=== PATIENT | male | born 1975 | race American Indian/Alaskan Native ===

== ENCOUNTER 2016-09-29 15:30 | Emergency (ER) | payer SELFPAY ==
[2016-09-29] MEDS ORDERED: BOOSTRIX IM ONE (20:52)
--- NOTE | 2016-09-29 21:12 | Emergency Department Report ---
ED Laceration HPI - HPI Chief Complaint: Wound/Laceration Stated Complaint: LEFT ARM LACERATION Time Seen by Provider: 09/29/16 20:39 Occurred When: Today Location: Upper Extremity Severity: mild Tetanus Status: Not up to Date Laceration Symptoms: Yes Pain (left forearm), No Foreign Body Sensation, No Numbness, No Weakness ED Review of Systems ROS: Stated complaint: LEFT ARM LACERATION Other details as noted in HPI Constitutional: denies: chills, fever Eyes: denies: eye pain, eye discharge, vision change ENT: denies: ear pain, throat pain Respiratory: denies: cough, shortness of breath, wheezing Cardiovascular: denies: chest pain, palpitations Endocrine: no symptoms reported Gastrointestinal: denies: abdominal pain, nausea, diarrhea Genitourinary: denies: urgency, dysuria Musculoskeletal: denies: back pain, joint swelling, arthralgia Skin: other (left forearm laceration). denies: rash, lesions Neurological: denies: headache, weakness, paresthesias Psychiatric: denies: anxiety, depression Hematological/Lymphatic: denies: easy bleeding, easy bruising ED Past Medical Hx - Past Medical History Additional medical history: high cholesterol. HERNIA. OBESITY - Surgical History Past Surgical History?: No - Social History Smoking Status: Current Every Day Smoker Substance Use Type: None - Medications Home Medications: Home Medications Medication Instructions Recorded Confirmed Last Taken Type No Known Home Medications [No 09/29/16 09/29/16 Unknown History Reported Home Medications] Laceration Physical Exam - Exam General: Vital signs noted. No distress. Alert and acting appropriately. Wound Length (cm): 1 (smaller than 1 cm ) Full Body Front + Back: 1 - laceration less than 1 cm bleeding controlled clean no contamination Laceration Exam: Yes Normal Distal CMS, No Foreign Body, No Exposed Tendon, Vessel, or Nerve, No Tendon Injury ED Course Vital Signs 09/29/16 15:37 Temperature 98.6 F Pulse Rate 89 Respiratory 17 Rate Blood Pressure 139/93 O2 Sat by Pulse 95 Oximetry - Laceration /Wound Repair Left Anterior Arm Wound Location: upper extremity Wound Explored: clean Irrigated w/ Saline (ccs): 30 Betadine Prep?: Yes Anesthesia: 1% Lidocaine Volume Anesthetic (ccs): 1 Wound Debrided: minimal Wound Repaired With: sutures Suture Size/Type: 5:0, proline Number of Sutures: 2 Layer Closure?: No Sterile Dressing Applied?: Yes Progress: left forearm laceration repair , site cleaned with betadine solution anesthesia with 1% lidocaine, wound irrigated wtih 30 ns, closed wtih prolyne 5.0 x 2 sutures, all bleeding controlled sterile dressing applied pt given wound care instructions verbalized understanding of same, pt tolerated procedure with minimal distress. 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 ED Disposition Clinical Impression: Laceration of forearm, left Qualifiers: Encounter type: initial encounter Qualified Code(s): S51.812A - Laceration without foreign body of left forearm, initial encounter Disposition: TO HOME OR SELFCARE Is pt being admited?: No Does the pt Need Aspirin: No Condition: Good Instructions: Suture Care (ED) Referrals: PRIMARY CARE, [Primary Care Provider] - 3-5 Days Forms: Work/School Release Form(ED) Time of Disposition: 21:15
[2016-09-30 01:26] VITALS: BP 159/96
== END 2016-09-29 21:25 | disposition home or self-care (01) ==
LOC: ED 15:30
DX: S41.112A Laceration without foreign body of left upper arm, initial encounter (principal); E78.00 Pure hypercholesterolemia, unspecified; F17.210 Nicotine dependence, cigarettes, uncomplicated; X58.XXXA Exposure to other specified factors, initial encounter; Y93.89 Activity, other specified; Y92.89 Other specified places as the place of occurrence of the external cause; Y99.8 Other external cause status
CPT/HCPCS: 90471; 90715; 99282

== ENCOUNTER 2018-05-24 15:29 | Observation (INO) | payer SELFPAY ==
[2018-05-24] MEDS ORDERED: ASPIRIN PO ONE (16:02)
--- NOTE | 2018-05-24 16:04 | Emergency Department Report ---
Chief Complaint: Chest Pain Stated Complaint: CHEST PAINS Time Seen by Provider: 05/24/18 16:01 - HPI History of Present Illness: This is a 42 y.o. male that presents to the ER with chest pain and SOB for 2-3 days. Denies palpations, nausea or vomiting, dizziness, radiating pain, edema, or recent travel. - Exam Vital Signs: Vital Signs 05/24/18 16:00 Temperature 98.7 F Pulse Rate 85 Respiratory 16 Rate Blood Pressure 127/91 O2 Sat by Pulse 98 Oximetry MSE screening note: Focused history and physical exam performed. Due to findings the following was ordered: Labs, ekg, and CXR ED Disposition for MSE Condition: Stable
[2018-05-24 16:22] LABS: Basophils # (Auto) 0.1 K/mm3 (0.0-0.1); Basophils % (Auto) 1.2 % (0.0-1.8); Eosinophils # (Auto) 0.2 K/mm3 (0.0-0.4); Eosinophils % (Auto) 4.5 % (0.0-4.3); Hematocrit 45.3 % (35.5-45.6); Hemoglobin 15.2 gm/dl (11.8-15.2); Lymphocytes # (Auto) 2.6 K/mm3 (1.2-5.4); Lymphocytes % (Auto) 50.6 % (13.4-35.0); Mean Corpuscular HGB Conc 34 % (32-34); Mean Corpuscular Volume 90 fl (84-94); Monocytes # (Auto) 0.3 K/mm3 (0.0-0.8); Monocytes % (Auto) 5.1 % (0.0-7.3); Platelet Count 264 K/mm3 (140-440); Red Blood Count 5.02 M/mm3 (3.65-5.03); Red Cell Distribution Width 14.7 % (13.2-15.2)
[2018-05-24 16:34] LABS: BUN/Creatinine Ratio 9; Blood Urea Nitrogen 9 mg/dL (9-20); Calcium 9.5 mg/dL (8.4-10.2); Hemolysis Index 20
--- NOTE | 2018-05-24 17:03 | XRay Report ---
PROCEDURE: XR CHEST ROUTINE 2V TECHNIQUE: PA and lateral views of the chest HISTORY: Chest Pain COMPARISONS: None FINDINGS: There is no evidence of infiltrate, pneumothorax or pleural fluid collection. The cardiomediastinal silhouette is normal in appearance. The bony structures are unremarkable. IMPRESSION: 1. No evidence of an acute pulmonary process. This document is electronically signed by Graciela Grady MD., May 24 2018 05:01:43 PM ET
[2018-05-24] MEDS ORDERED: NITROSTAT SL PRN (17:32)
--- NOTE | 2018-05-24 18:34 | Emergency Department Report ---
ED Chest Pain HPI - General Chief Complaint: Chest Pain Stated Complaint: CHEST PAINS Time Seen by Provider: 05/24/18 16:01 Source: patient Mode of arrival: Ambulatory Limitations: No Limitations - History of Present Illness -: days(s) (2) Onset: during rest Pain Location: substernal, left chest Pain Radiation: other (left shoulder) Severity: moderate Severity scale (0 -10): 6 Quality: tightness, aching, dull Consistency: constant Improves With: nothing Worsens With: nothing re: dyspnea, other (pt states he gets GERd symptoms after drinking carbonated drinks but states that this discomfort is differant). denies: nausea, vomting, diaphoresis Other Symptoms: denies: cough, fever, syncope, rash, acid taste in mouth, leg swelling, palpitations - Related Data Home Medications Medication Instructions Recorded Confirmed Last Taken No Known Home Medications [No 09/29/16 09/29/16 Unknown Reported Home Medications] Allergies Allergy/AdvReac Type Severity Reaction Status Date / Time Penicillins Allergy Unknown Verified 05/24/18 15:30 shellfish derived Allergy Swelling Verified 05/24/18 15:30 Heart Score - HEART Score History: Moderately suspicious EKG: Non-specific Age: < 45 Risk factors: 1-2 risk factors Troponin: < normal limit HEART Score: 3 ED Review of Systems ROS: Stated complaint: CHEST PAINS Other details as noted in HPI Comment: All other systems reviewed and negative ED Past Medical Hx - Past Medical History Previous Medical History?: Yes Additional medical history: high cholesterol - Surgical History Past Surgical History?: No - Social History Smoking Status: Current Every Day Smoker Substance Use Type: None - Medications Home Medications: Home Medications Medication Instructions Recorded Confirmed Last Taken Type No Known Home Medications [No 09/29/16 09/29/16 Unknown History Reported Home Medications] ED Physical Exam - General Limitations: No Limitations General appearance: alert, in no apparent distress - Head Head exam: Present: atraumatic, normocephalic - Eye Eye exam: Present: normal appearance - ENT ENT exam: Present: mucous membranes moist - Neck Neck exam: Present: normal inspection - Respiratory Respiratory exam: Present: normal lung sounds bilaterally. Absent: respiratory distress, wheezes, rales, rhonchi - Cardiovascular Cardiovascular Exam: Present: regular rate, normal rhythm. Absent: systolic murmur, diastolic murmur, rubs, gallop - GI/Abdominal GI/Abdominal exam: Present: soft, normal bowel sounds. Absent: distended, tenderness, guarding, rebound - Rectal Rectal exam: Present: deferred - Extremities Exam Extremities exam: Present: normal inspection - Back Exam Back exam: Present: normal inspection - Neurological Exam Neurological exam: Present: alert, oriented X3 - Psychiatric Psychiatric exam: Present: normal affect, normal mood - Skin Skin exam: Present: warm, dry, intact, normal color. Absent: rash ED Course Vital Signs 05/24/18 16:00 Temperature 98.7 F Pulse Rate 85 Respiratory 16 Rate Blood Pressure 127/91 O2 Sat by Pulse 98 Oximetry JOSE score - Jose Score Age > 65: (0) No Aspirin use within the Past 7 Days: (0) No 3 or more CAD Risk Factors: (0) No 2 or more Angina events in past 24 hrs: (1) Yes Known CAD with more than 50% Stenosis: (0) No Elevated Cardiac Markers: (0) No ST Deviation Greater than 0.5mm: (0) No JOSE Score: 1 ED Medical Decision Making - Lab Data Result diagrams: 05/24/18 16:07 05/24/18 16:07 Lab Results 05/24/18 05/24/18 Range/Units 16:07 16:07 WBC 5.2 (4.5-11.0) K/mm3 RBC 5.02 (3.65-5.03) M/mm3 Hgb 15.2 (11.8-15.2) gm/dl Hct 45.3 (35.5-45.6) % MCV 90 (84-94) fl MCH 30 (28-32) pg MCHC 34 (32-34) % RDW 14.7 (13.2-15.2) % Plt Count 264 (140-440) K/mm3 Lymph % (Auto) 50.6 H (13.4-35.0) % [place] % (Auto) 5.1 (0.0-7.3) % Eos % (Auto) 4.5 H (0.0-4.3) % Baso % (Auto) 1.2 (0.0-1.8) % Lymph # 2.6 (1.2-5.4) K/mm3 [place] # 0.3 (0.0-0.8) K/mm3 Eos # 0.2 (0.0-0.4) K/mm3 Baso # 0.1 (0.0-0.1) K/mm3 Seg Neutrophils % 38.6 L (40.0-70.0) % Seg Neutrophils # 2.0 (1.8-7.7) K/mm3 Sodium 141 (137-145) mmol/L Potassium 4.4 (3.6-5.0) mmol/L Chloride 103.9 (98-107) mmol/L Carbon Dioxide 28 (22-30) mmol/L Anion Gap 14 mmol/L BUN 9 (9-20) mg/dL Creatinine 1.0 (0.8-1.5) mg/dL Estimated GFR > 60 ml/min BUN/Creatinine Ratio 9 % Glucose 82 (75-100) mg/dL Calcium 9.5 (8.4-10.2) mg/dL Troponin T < 0.010 (0.00-0.029) ng/mL - EKG Data -: EKG Interpreted by Fl EKG shows normal: sinus rhythm, axis, intervals, QRS complexes, ST-T waves Rate: normal - EKG Data Interpretation: normal EKG - Radiology Data [facility] [address] [place] [address] XRay Report Signed Patient: NELLY SEVERINO MR#: [id number] : 1975 Acct:[id number] Age/Sex: 42 / M ADM Date: 05/24/18 Loc: ED Attending Dr: Ordering Physician: DIPAK BAILEY Date of Service: 05/24/18 Procedure(s): XR chest routine 2V Accession Number(s): [id number] cc: DIPAK BAILEY Fluoro Time In Minutes: PROCEDURE: XR CHEST ROUTINE 2V TECHNIQUE: PA and lateral views of the chest HISTORY: Chest Pain COMPARISONS: None FINDINGS: There is no evidence of infiltrate, pneumothorax or pleural fluid collection. The cardiomediastinal silhouette is normal in appearance. The bony structures are unremarkable. IMPRESSION: 1. No evidence of an acute pulmonary process. This document is electronically signed by Graciela Mendez MD., May 24 2018 05:01:43 PM ET Transcribed By: ED Dictated By: GRACIELA MENDEZ MD Electronically Authenticated By: GRACIEAL MENDEZ MD Signed Date/Time: 05/24/18 1703 DD/ 1640 TD/TT: 05/24/18 1640 - Medical Decision Making Patient is a 42-year-old male with a heart score 3. Patient has never had any cardiac evaluation in the past. He is a heavy smoker. Patient states his discomfort is different from any pain he ever had before. Patient to be admitted to the hospitalist service for cardiac workup. Critical Care Time: Yes (30) Critical care attestation.: If time is entered above; I have spent that time in minutes in the direct care of this critically ill patient, excluding procedure time. ED Disposition Clinical Impression: Chest pain Qualifiers: Chest pain type: unspecified Qualified Code(s): R07.9 - Chest pain, unspecified Disposition: 09 OP ADMIT IP TO THIS HOSP Is pt being admited?: Yes Does the pt Need Aspirin: No Condition: Stable Instructions: Chest Pain (ED) Time of Disposition: 18:39
--- NOTE | 2018-05-24 21:59 | History and Physical Report ---
History of Present Illness Date of examination: 05/24/18 Date of admission: 05/24/18 18:40 Medications and Allergies Allergies Allergy/AdvReac Type Severity Reaction Status Date / Time Penicillins Allergy Unknown Verified 05/24/18 15:30 shellfish derived Allergy Swelling Verified 05/24/18 15:30 Home Medications Medication Instructions Recorded Confirmed Last Taken Type No Known Home Medications [No 09/29/16 09/29/16 Unknown History Reported Home Medications] Active Meds: Active Medications Nitroglycerin (Nitrostat) 0.4 mg SL .Q5MIN PRN PRN Reason: Chest Pain Exam - Constitutional Vitals: Temp Pulse Resp BP Pulse Ox 98.7 F 71 18 138/89 98 05/24/18 16:00 05/24/18 20:21 05/24/18 20:23 05/24/18 20:21 05/24/18 20:23 Results - Labs CBC & Chem 7: 05/24/18 16:07 05/24/18 16:07 Labs: Laboratory Last Values WBC 5.2 K/mm3 (4.5-11.0) 05/24/18 16:07 RBC 5.02 M/mm3 (3.65-5.03) 05/24/18 16:07 Hgb 15.2 gm/dl (11.8-15.2) 05/24/18 16:07 Hct 45.3 % (35.5-45.6) 05/24/18 16:07 MCV 90 fl (84-94) 05/24/18 16:07 MCH 30 pg (28-32) 05/24/18 16:07 MCHC 34 % (32-34) 05/24/18 16:07 RDW 14.7 % (13.2-15.2) 05/24/18 16:07 Plt Count 264 K/mm3 (140-440) 05/24/18 16:07 Lymph % (Auto) 50.6 % (13.4-35.0) H 05/24/18 16:07 [place] % (Auto) 5.1 % (0.0-7.3) 05/24/18 16:07 Eos % (Auto) 4.5 % (0.0-4.3) H 05/24/18 16:07 Baso % (Auto) 1.2 % (0.0-1.8) 05/24/18 16:07 Lymph # 2.6 K/mm3 (1.2-5.4) 05/24/18 16:07 [place] # 0.3 K/mm3 (0.0-0.8) 05/24/18 16:07 Eos # 0.2 K/mm3 (0.0-0.4) 05/24/18 16:07 Baso # 0.1 K/mm3 (0.0-0.1) 05/24/18 16:07 Seg Neutrophils % 38.6 % (40.0-70.0) L 05/24/18 16:07 Seg Neutrophils # 2.0 K/mm3 (1.8-7.7) 05/24/18 16:07 Sodium 141 mmol/L (137-145) 05/24/18 16:07 Potassium 4.4 mmol/L (3.6-5.0) 05/24/18 16:07 Chloride 103.9 mmol/L (98-107) 05/24/18 16:07 Carbon Dioxide 28 mmol/L (22-30) 05/24/18 16:07 Anion Gap 14 mmol/L 05/24/18 16:07 BUN 9 mg/dL (9-20) 05/24/18 16:07 Creatinine 1.0 mg/dL (0.8-1.5) 05/24/18 16:07 Estimated GFR > 60 ml/min 05/24/18 16:07 BUN/Creatinine Ratio 9 % 05/24/18 16:07 Glucose 82 mg/dL (75-100) 05/24/18 16:07 Calcium 9.5 mg/dL (8.4-10.2) 05/24/18 16:07 Troponin T < 0.010 ng/mL (0.00-0.029) 05/24/18 21:12
[2018-05-24] MEDS ORDERED: DILAUDID IV PRN (22:01)
[2018-05-24] MEDS ORDERED: PERCOCET 5/325 PO PRN (22:01)
[2018-05-24] MEDS ORDERED: SODIUM CHLORIDE FLUSH SYRINGE 10 ML IV PRN (22:01)
[2018-05-24] MEDS ORDERED: ZOFRAN IV PRN (22:01)
[2018-05-24] MEDS ORDERED: TYLENOL PO PRN (22:01)
--- NOTE | 2018-05-25 06:53 | Event Note ---
Date: 05/24/18 See H/p in reports CHest pain r/o MT Borderline HTN Nicotine dependence
[2018-05-25 06:58] LABS: Alanine Aminotransferase 8 units/L (7-56); Albumin 3.7 g/dL (3.9-5); BUN/Creatinine Ratio 11; Blood Urea Nitrogen 11 mg/dL (9-20); Calcium 8.9 mg/dL (8.4-10.2); Hemolysis Index 9
--- NOTE | 2018-05-25 07:20 | History and Physical Report ---
CHIEF COMPLAINT: Left-sided chest pain off and on for 1 week. HISTORY OF PRESENT ILLNESS: A 42-year-old male with no significant past medical history, comes in for left-sided chest pain with radiation to left arm. Chest pain is dull to sharp in character, about 6 on a scale of 1-10. No diaphoresis, no shortness of breath, no palpitations. Exacerbated by exertion. Relieved with rest. No recent travel. PAST MEDICAL HISTORY: None except for high cholesterol. PAST SURGICAL HISTORY: None. SOCIAL HISTORY: Smokes about a pack a day. FAMILY HISTORY: Hypertension in mother. REVIEW OF SYSTEMS: Significant for left-sided chest pain with radiation to left arm. Otherwise, review of systems negative. PHYSICAL EXAMINATION: GENERAL: Young male, cooperative during examination. VITAL SIGNS: Blood pressure is 138/89, 130/85, 118/64. Pulse is 80 and temperature 98.2. Respiratory rate is 20. HEENT: Unremarkable. Pupils equal and reactive. NECK: Supple, no lymphadenopathy, no thyromegaly. LUNGS: Clear to auscultation and percussion. Good air entry. CARDIOVASCULAR SYSTEM: S1, S2 heard. No gallop, no murmur, no rub. Apical impulse in left fifth intercostal space in midclavicular line. ABDOMEN: Soft and benign. No hepatosplenomegaly, no guarding, no rigidity. Hernial orifices are normal. EXTREMITIES: Good pedal pulses. No pedal edema. CENTRAL NERVOUS SYSTEM: Alert and oriented x 4, nonfocal exam. SKIN: Normal. LABORATORY DATA: White count is 5200, H and H is 15.2 and 45.3, platelet count is 264,000. Electrolytes are normal. DIAGNOSTIC DATA: EKG shows normal sinus rhythm, sinus tachycardia, heart rate of 101. No acute ST-T wave changes. Chest x-ray was normal. No acute findings. ASSESSMENT AND PLAN: 1. Chest pain, rule out myocardial infarction. The patient to get serial troponins and Lexiscan in the morning. Differential diagnosis of costochondritis and gastroesophageal reflux disease to be considered. 2. Hypertension, borderline. Will trend the blood pressure readings and start antihypertensives if necessary. At this point, I do not think he needs any antihypertensives. 3. Nicotine dependence. The patient counseled about nicotine dependence and the effects of smoking. Nicoderm patch initiated. 4. Deep venous thrombosis prophylaxis, Lovenox 40 mg subcutaneous daily. JOB# [id number] VSM/NTS MTDD
[2018-05-25 07:32] LABS: Hematocrit 41.3 % (35.5-45.6); Hemoglobin 13.8 gm/dl (11.8-15.2); Mean Corpuscular HGB Conc 33 % (32-34); Mean Corpuscular Volume 91 fl (84-94); Platelet Count 225 K/mm3 (140-440); Red Blood Count 4.54 M/mm3 (3.65-5.03); Red Cell Distribution Width 14.4 % (13.2-15.2)
[2018-05-25] MEDS ORDERED: LEXISCAN IV ONE ×2 (07:57→08:05)
[2018-05-25 08:55] LABS: Basophils % (Manual) 0 % (0.0-1.8); Platelet Estimate Consistent w Auto; RBC Morphology Normal; Total Cells Counted 100
[2018-05-25] MEDS ORDERED: SODIUM CHLORIDE FLUSH SYRINGE 10 ML IV SCH (10:00)
[2018-05-25] MEDS ORDERED: HABITROL TD SCH ×2 (10:00→12:00)
--- NOTE | 2018-05-25 14:38 | Discharge Summary ---
Providers - Providers Date of Admission: 05/24/18 18:40 Date of discharge: 05/25/18 Attending physician: YING WALL None [facility] Condition: Stable Hospital course: patient was admitted for Chest pain r/o LA protocol.Patient had Lexiscan which was negative .EF was 41 percent on Lexiscan.Also borderline elevation of BP --stated on Losartan 50 mg po qd and ASA 81 mg po qd.Patient was counselled about stopping smoking. Disposition: DC-01 TO HOME OR SELFCARE Core Measure Documentation - Palliative Care Palliative Care/ Comfort Measures: Not Applicable - Core Measures Any of the following diagnoses?: none Exam - Constitutional Vitals: Temp Pulse Resp BP Pulse Ox 97.8 F 58 L 18 151/94 98 05/25/18 05:48 05/25/18 05:48 05/25/18 05:48 05/25/18 10:28 05/25/18 05:48 General appearance: Present: no acute distress, well-nourished - EENT Eyes: Present: PERRL ENT: hearing intact, clear oral mucosa - Neck Neck: Present: supple, normal ROM - Respiratory Respiratory effort: normal Respiratory: bilateral: CTA - Cardiovascular Heart rate: 70 Rhythm: regular Heart Sounds: Present: S1 & S2. Absent: rub, click - Extremities Extremities: no ischemia, pulses intact, pulses symmetrical, No edema Peripheral Pulses: within normal limits - Abdominal General gastrointestinal: Present: soft, non-tender, non-distended, normal bowel sounds Male genitourinary: Present: normal - Rectal Rectal Exam: deferred - Integumentary Integumentary: Present: clear, warm, dry - Musculoskeletal Musculoskeletal: gait normal, strength equal bilaterally - Psychiatric Psychiatric: appropriate mood/affect, intact judgment & insight - Neurologic Neurologic: CNII-XII intact, moves all extremities - Allied Health Allied health notes reviewed: nursing, case management Plan Activity: no restrictions Diet: low fat, low cholesterol, low salt Follow up with: JAY TIWARI MD [Staff Physician] - 7 Days [place] OLIVER DORADO MD [Primary Care Provider] - 07/08/25 NIVIA MANRIQUEZ MD [Staff Physician] - 7 Days
[2018-05-25 17:12] VITALS: BP 144/95
== END 2018-05-25 17:57 | disposition home or self-care (01) ==
LOC: ED 15:29 → 3A 18:40
PROVIDERS: ADMIT Internal Medicine; ATTEND Internal Medicine
DX: R07.89 Other chest pain (principal); I10 Essential (primary) hypertension; E78.00 Pure hypercholesterolemia, unspecified; F17.210 Nicotine dependence, cigarettes, uncomplicated
CPT/HCPCS: 36415; 71046; 78452; 80048; 80053; 83036; 84484; 85007; 85025; 93005; 93010; 93017; 99291; 99406; A9502; G0378; J2785

== ENCOUNTER 2018-09-05 13:05 | Emergency (ER) | payer SELFPAY ==
[2018-09-05 13:22] VITALS: BP 140/95
[2018-09-05 13:35] LABS: Basophils # (Auto) 0.1 K/mm3 (0.0-0.1); Basophils % (Auto) 1.1 % (0.0-1.8); Eosinophils # (Auto) 0.3 K/mm3 (0.0-0.4); Eosinophils % (Auto) 4.8 % (0.0-4.3); Hematocrit 44.6 % (35.5-45.6); Hemoglobin 15.4 gm/dl (11.8-15.2); Lymphocytes # (Auto) 2.6 K/mm3 (1.2-5.4); Lymphocytes % (Auto) 46.2 % (13.4-35.0); Mean Corpuscular HGB Conc 34 % (32-34); Mean Corpuscular Volume 92 fl (84-94); Monocytes # (Auto) 0.3 K/mm3 (0.0-0.8); Monocytes % (Auto) 5.9 % (0.0-7.3); Platelet Count 290 K/mm3 (140-440); Red Blood Count 4.85 M/mm3 (3.65-5.03); Red Cell Distribution Width 14.9 % (13.2-15.2)
--- NOTE | 2018-09-05 13:37 | Event Note ---
ED Screening Note Date of service: 09/05/18 Time: 13:21 ED Screening Note: 42 y/o male comes in for chest pain since last night. History of chest pain last admitted in May for chest pain but never followed up. This initial assessment/diagnostic orders/clinical plan/treatment(s) is/are subject to change based on patients health status, clinical progression and re- assessment by fellow clinical providers in the ED. Further treatment and workup at subsequent clinical providers discretion. Patient/guardian urged not to elope from the ED as their condition may be serious if not clinically assessed and managed. Initial orders include:
[2018-09-05 13:45] LABS: INR 0.93 (0.87-1.13); Partial Thromboplastin Time 27.9 Sec. (24.2-36.6)
[2018-09-05 14:05] LABS: Alanine Aminotransferase 11 units/L (7-56); Albumin 3.9 g/dL (3.9-5); BUN/Creatinine Ratio 7; Blood Urea Nitrogen 6 mg/dL (9-20); Hemolysis Index 9
--- NOTE | 2018-09-05 14:08 | Emergency Department Report ---
ED Chest Pain HPI - General Chief Complaint: Chest Pain Stated Complaint: CHEST PAIN Time Seen by Provider: 09/05/18 13:43 Source: patient Mode of arrival: Ambulatory Limitations: No Limitations - History of Present Illness Severity scale (0 -10): 6 - Related Data Previous Rx's Medication Instructions Recorded Last Taken Type Aspirin EC 81 mg PO QDAY 100 Days #100 05/25/18 Unknown Rx tablet. Losartan [Cozaar] 50 mg PO QDAY #30 tablet 05/25/18 Unknown Rx Allergies Allergy/AdvReac Type Severity Reaction Status Date / Time Penicillins Allergy Unknown Verified 05/24/18 15:30 shellfish derived Allergy Swelling Verified 05/24/18 15:30 ED Review of Systems ROS: Stated complaint: CHEST PAIN Other details as noted in HPI ED Past Medical Hx - Past Medical History Hx Congestive Heart Failure: No Hx Diabetes: No Hx Asthma: No Hx COPD: No Additional medical history: high cholesterol - Surgical History Past Surgical History?: No - Social History Smoking Status: Current Every Day Smoker Substance Use Type: None - Medications Home Medications: Home Medications Medication Instructions Recorded Confirmed Last Taken Type Aspirin EC 81 mg PO QDAY 100 Days #100 05/25/18 Unknown Rx tablet. Losartan [Cozaar] 50 mg PO QDAY #30 tablet 05/25/18 Unknown Rx ED Physical Exam - General Limitations: No Limitations ED Course Vital Signs 09/05/18 13:21 Temperature 98.0 F Pulse Rate 93 H Respiratory 16 Rate Blood Pressure 140/95 O2 Sat by Pulse 98 Oximetry CHRISTELLE score - Christelle Score Age > 65: (0) No Aspirin use within the Past 7 Days: (0) No 3 or more CAD Risk Factors: (0) No 2 or more Angina events in past 24 hrs: (1) Yes Known CAD with more than 50% Stenosis: (0) No Elevated Cardiac Markers: (0) No ST Deviation Greater than 0.5mm: (0) No CHRISTELLE Score: 1 ED Medical Decision Making - Lab Data Result diagrams: 09/05/18 13:26 09/05/18 13:26 Critical care attestation.: If time is entered above; I have spent that time in minutes in the direct care of this critically ill patient, excluding procedure time. ED Disposition Clinical Impression: Chest pain Disposition: DC-01 TO HOME OR SELFCARE Condition: Stable Instructions: Chest Pain (ED) Referrals: JAY TIWARI MD [Staff Physician] - 3-5 Days
--- NOTE | 2018-09-05 14:08 | XRay Report ---
CHEST 2 VIEWS 1354 INDICATION / CLINICAL INFORMATION: chest pain. COMPARISON: None available. FINDINGS: SUPPORT DEVICES: None. HEART / MEDIASTINUM: No significant abnormality. LUNGS / PLEURA: No significant pulmonary or pleural abnormality. No pneumothorax. ADDITIONAL FINDINGS: No significant additional findings. IMPRESSION: No significant acute abnormality Signer Name: Lloyd Olivera MD Signed: 09/05/2018 2:03 PM Workstation Name: [id number]
== END 2018-09-05 14:13 | disposition home or self-care (01) ==
LOC: ED 13:05
DX: R07.89 Other chest pain (principal); E78.00 Pure hypercholesterolemia, unspecified; F17.200 Nicotine dependence, unspecified, uncomplicated; Z79.899 Other long term (current) drug therapy; Z88.0 Allergy status to penicillin; Z91.013 Allergy to seafood
CPT/HCPCS: 36415; 71046; 80053; 84484; 85025; 85610; 85730; 93005; 93010

== ENCOUNTER 2018-10-25 00:29 | Emergency (ER) | payer SELFPAY ==
[2018-10-25] MEDS ORDERED: ASPIRIN PO ONE (00:44)
[2018-10-25 01:13] LABS: Basophils # (Auto) 0.1 K/mm3 (0.0-0.1); Basophils % (Auto) 0.9 % (0.0-1.8); Eosinophils # (Auto) 0.3 K/mm3 (0.0-0.4); Eosinophils % (Auto) 4.9 % (0.0-4.3); Hematocrit 44.2 % (35.5-45.6); Hemoglobin 15.5 gm/dl (11.8-15.2); Lymphocytes # (Auto) 2.2 K/mm3 (1.2-5.4); Mean Corpuscular HGB Conc 35 % (32-34); Mean Corpuscular Volume 90 fl (84-94); Monocytes # (Auto) 0.3 K/mm3 (0.0-0.8); Monocytes % (Auto) 5.8 % (0.0-7.3); Platelet Count 288 K/mm3 (140-440); Red Blood Count 4.89 M/mm3 (3.65-5.03); Red Cell Distribution Width 14.4 % (13.2-15.2)
[2018-10-25 01:35] LABS: BUN/Creatinine Ratio 14; Blood Urea Nitrogen 14 mg/dL (9-20); Calcium 9.5 mg/dL (8.4-10.2); Hemolysis Index 22
[2018-10-25] MEDS ORDERED: ALUM-MAG HYDROX-SIMETH 200-200-20MG/5ML PO ONE (05:14)
--- NOTE | 2018-10-25 05:14 | XRay Report ---
CHEST 1 VIEW 0101 INDICATION / CLINICAL INFORMATION: Chest Pain. COMPARISON: 05/24/2018 FINDINGS: SUPPORT DEVICES: None HEART / MEDIASTINUM: No significant abnormality. LUNGS / PLEURA: No significant pulmonary or pleural abnormality. No pneumothorax. ADDITIONAL FINDINGS: No significant additional findings. IMPRESSION: No significant acute abnormality Signer Name: Lloyd Olivera MD Signed: 10/25/2018 5:10 AM Workstation Name: [facility]
--- NOTE | 2018-10-25 06:07 | Emergency Department Report ---
ED Chest Pain HPI - General Chief Complaint: Chest Pain Stated Complaint: CHEST PAIN Time Seen by Provider: 10/25/18 04:45 Source: patient Mode of arrival: Ambulatory Limitations: No Limitations - History of Present Illness Initial Comments: 42 Y.O aaalondra presents to ER with chest pain, x 2 days. 04/21, right and left chest without radiation. mild sob, no vomiting. Admitted in may for chest pain and had negative stress test. MD Complaint: chest pain -: Gradual Onset: during rest Pain Location: left chest, right chest Pain Radiation: none Severity scale (0 -10): 2 Quality: tightness Consistency: intermittent Improves With: nothing Worsens With: nothing Context: recent illness Treatments Prior to Arrival: none - Related Data Previous Rx's Medication Instructions Recorded Last Taken Type Aspirin EC [Halfprin EC] 81 mg PO QDAY 100 Days #100 05/25/18 Unknown Rx tablet. Losartan [Cozaar] 50 mg PO QDAY #30 tablet 05/25/18 Unknown Rx Famotidine [Pepcid] 20 mg PO BID #60 tablet 10/25/18 Unknown Rx Allergies Allergy/AdvReac Type Severity Reaction Status Date / Time Penicillins Allergy Unknown Verified 05/24/18 15:30 shellfish derived Allergy Swelling Verified 05/24/18 15:30 ED Review of Systems ROS: Stated complaint: CHEST PAIN Other details as noted in HPI ED Past Medical Hx - Past Medical History Previous Medical History?: Yes Hx Hypertension: Yes Hx Congestive Heart Failure: No Hx Diabetes: No Hx Asthma: No Hx COPD: No Additional medical history: high cholesterol - Surgical History Past Surgical History?: No - Social History Smoking Status: Current Every Day Smoker Substance Use Type: None - Medications Home Medications: Home Medications Medication Instructions Recorded Confirmed Last Taken Type Aspirin EC [Halfprin EC] 81 mg PO QDAY 100 Days #100 05/25/18 Unknown Rx tablet. Losartan [Cozaar] 50 mg PO QDAY #30 tablet 05/25/18 Unknown Rx Famotidine [Pepcid] 20 mg PO BID #60 tablet 10/25/18 Unknown Rx ED Physical Exam - General Limitations: No Limitations ED Course Vital Signs 10/25/18 10/25/18 10/25/18 00:46 04:27 04:29 Temperature 98 F Pulse Rate 87 71 87 Respiratory 16 20 Rate Blood Pressure 110/60 119/73 [Left] O2 Sat by Pulse 99 97 Oximetry CHRISTELLE score - Christelle Score Age > 65: (0) No Aspirin use within the Past 7 Days: (0) No 3 or more CAD Risk Factors: (0) No 2 or more Angina events in past 24 hrs: (1) Yes Known CAD with more than 50% Stenosis: (0) No Elevated Cardiac Markers: (0) No ST Deviation Greater than 0.5mm: (0) No CHRISTELLE Score: 1 ED Medical Decision Making - Lab Data Result diagrams: 10/25/18 00:51 10/25/18 00:51 Critical care attestation.: If time is entered above; I have spent that time in minutes in the direct care of this critically ill patient, excluding procedure time. ED Disposition Clinical Impression: Chest pain Qualifiers: Chest pain type: other chest pain Qualified Code(s): R07.89 - Other chest pain Disposition: DC-01 TO HOME OR SELFCARE Is pt being admited?: No Does the pt Need Aspirin: No Condition: Stable Instructions: Chest Pain (ED) Prescriptions: Famotidine [Pepcid] 20 mg PO BID #60 tablet Referrals: PRIMARY CARE, [Primary Care Provider] - 3-5 Days
[2018-10-25 06:28] VITALS: BP 109/65
== END 2018-10-25 06:29 | disposition home or self-care (01) ==
LOC: ED 00:29
DX: R07.89 Other chest pain (principal); R06.02 Shortness of breath; I10 Essential (primary) hypertension; E78.00 Pure hypercholesterolemia, unspecified; F17.200 Nicotine dependence, unspecified, uncomplicated; Z88.0 Allergy status to penicillin; Z91.013 Allergy to seafood
CPT/HCPCS: 36415; 71045; 80048; 84484; 85025; 93005; 93010